=== PATIENT | female | born 1970 | race Caucasian/White ===

== ENCOUNTER 2020-11-01 16:21 | Outpatient (RCR) | payer BC, SELFPAY ==
[2019-02-06 14:26] VITALS: BMI 21.1
[2020-11-01] MEDS: COVID-19 VACC, MRNA(PFIZER)/PF 30 MCG/0.3 ML SYRINGE IM (11:42)
[2020-11-22] MEDS: COVID-19 VACC, MRNA(PFIZER)/PF 30 MCG/0.3 ML SYRINGE IM (11:33)
== END 2020-11-01 23:59 ==
LOC: IMMUN 16:21
PROVIDERS: PCP Family Medicine; Visit Provider Family Medicine
DX: Z23 Encounter for immunization (principal)
CPT/HCPCS: 0001A; 0002A; 91300

== ENCOUNTER 2021-11-11 07:25 | Outpatient (CLI) | payer BC, SELFPAY | END 2021-11-11 23:59 | disposition home or self-care (01) | LOC: LABSPEC 11-12 07:25 | PROVIDERS: PCP Family Medicine; Referring Provider Nurse Practitioner Women's Health; Visit Provider Nurse Practitioner Women's Health | DX: Z12.4 Encounter for screening for malignant neoplasm of cervix (principal); Z78.0 Asymptomatic menopausal state | CPT/HCPCS: 87624; 88175; G0145 ==

== ENCOUNTER 2021-11-20 17:15 | Outpatient (CLI) | payer BC, SELFPAY ==
--- NOTE | 2021-11-20 16:48 | BI_ITS ---
MAMMOGRAPHY - BILATERAL SCREENING REASON FOR EXAM: Female, 51 years old. Routine annual screening examination. PERTINENT HISTORY: Non-contributory. TECHNIQUE: Digital bilateral breast sabine (3D mammographic acquisition) in the CC and MLO projections. 2-D mediolateral oblique (MLO) and craniocaudad (CC) views of both breasts were obtained. CAD: Full Field Digital Mammography with Computer Added Detection was performed. COMPARISON: Comparison is made with prior study dated 05/06/2017 and 11/20/2014. FINDINGS: Breast Composition: There are scattered areas of fibroglandular density. There are no dominant masses or suspicious calcifications. No other significant abnormalities are identified. There has been no significant change since the prior study. BI/SCRN MAMM (CAD)W/SABINE BILAT IMPRESSION: Stable bilateral screening mammogram. Yearly follow-up mammogram recommended. (A) ASSESSMENT CATEGORY: BIRADS Category 1: Negative. A letter regarding these results will be sent to the patient by the facility within 30 days. Approximately 10% of breast cancers are not detected by mammography. A normal mammogram should not delay biopsy of a clinically suspicious abnormality. [id number] Electronically Signed: Bruce Jha MD at 8:42 EDT ,
== END 2021-11-20 23:59 | disposition home or self-care (01) ==
LOC: OPBI 11-21 07:48
PROVIDERS: PCP Family Medicine; Referring Provider Nurse Practitioner Women's Health; Visit Provider Nurse Practitioner Women's Health
DX: Z12.31 Encounter for screening mammogram for malignant neoplasm of breast (principal)
CPT/HCPCS: 77063; 77067

== ENCOUNTER → 2023-04-07 | Outpatient (CLI) | payer BC, SELFPAY ==
[2023-04-07 15:14] LABS: Absolute Neutrophil Count 3.6 X10^3/uL (2.0-7.7); Basophil# 0.07 X10^3/uL; Basophil% 1.1 % (0-1); Eosinophil# 0.13 X10^3/uL; Hematocrit 42.9 % (37-47); Hemoglobin 14.4 g/dL (12.0-15.0); Lymphocyte % 33.5 % (19-41); Mean Corp Hgb Conc 33.6 g/dL (32-36); Mean Corpuscular Hgb 29.5 pg (27.0-32.0); Mean Corpuscular Volume 87.9 fL (81-99); Mean Platelet Vol. 11.3 fl (6.2-12.0); Monocyte# 0.57 X10^3/uL; Monocyte% 8.7 % (0-10); NRBC Flagged by Analyzer 0 % (0-5); Neutrophil # 3.57 X10^3/uL (2.7-7.7); Neutrophil % 54.4 % (47-70); Platelet Count 269 K/mm3 (150-450); RBC Distribution Width CV 13.2 % (11.6-14.6); RBC Distribution Width SD 42.3 fl (35.1-43.9); Red Blood Count 4.88 M/mm3 (4.2-5.4); White Blood Count 6.6 K/mm3 (4.4-11.0)
[2023-04-07 15:46] LABS: ALB/GLOB Ratio 1.1 RATIO (0.9-2.4); AST(SGOT) 24 U/L (15-37); Alanine Aminotransfer ALT/SGPT 32 U/L (13-56); Albumin, Serum 4.3 g/dL (3.2-5.0); Alkaline Phosphatase 75 U/L (45-117); Anion Gap 7 (5-15); BUN 14 mg/dL (7-18); BUN/Creat Ratio 19.6 RATIO (10-20); Calcium,Total 9.7 mg/dL (8.5-10.1); Chloride 105 mmol/L (98-107); Cholesterol 214 mg/dL (200); Creatinine, Serum 0.72 mg/dL (0.55-1.02); EST Glomerular Filtration Rate 91 mL/min (>60); Est Glom Filt Rate - Afr Amer 110 mL/min (>60); Globulin 3.8 g/dL (2.2-4.2); Glucose 90 mg/dL (74-106); High Density Lipoprotein 68 mg/dL; Potassium 4.2 mmol/L (3.5-5.1); Protein, Total 8.1 g/dL (6.4-8.2); Sodium Level 141 mmol/L (136-145); Triglycerides 125 mg/dL; Very Low Density Lipoprotein 25 mg/dL (5-40)
[2023-04-07 15:50] LABS: Vitamin D,25 Hydroxy 40.4 ng/mL
== END | disposition home or self-care (01) ==
LOC: BFHLAB 13:17
PROVIDERS: PCP Nurse Practitioner Family; Referring Provider Nurse Practitioner Family; Visit Provider Nurse Practitioner Family
DX: Z00.01 Encounter for general adult medical examination with abnormal findings (principal); E55.9 Vitamin D deficiency, unspecified
CPT/HCPCS: 36415; 80053; 80061; 82306; 85025

== ENCOUNTER → 2024-11-18 | Outpatient (CLI) | payer BC, SELFPAY ==
--- NOTE | 2024-11-18 07:29 | RAD_ITS ---
PROCEDURE: L/S SPINE MIN 4 VIEWS 11/18/2024 REASON FOR EXAM: ASSESS VERTEBRAL ALIGNMENT AND DISC SPACE TECHNIQUE: Standing AP view(s) of the thoracic and lumbar spine. FINDINGS: Curvature: No scoliosis. Other findings: Vertebral body heights are normal. Disc heights are normal. No significant endplate spondylosis. Mild facet joint arthritis at the lower lumbar spine levels Other: RAD/L/S Spine Min 4 Views IMPRESSION: No acute process. No significant degenerative disc disease. Reading Location: [facility]
[2024-11-18 08:55] LABS: ALB/GLOB Ratio 1.5 RATIO (0.9-2.4); AST(SGOT) 24 U/L (<=31); Alanine Aminotransfer ALT/SGPT 16 U/L (<=34); Albumin, Serum 4.3 g/dL (3.5-5.0); Alkaline Phosphatase 79 U/L (35-104); Anion Gap 12 (5-15); BUN 16 mg/dL (4-19); BUN/Creat Ratio 23.2 RATIO (10-20); Calcium,Total 9.6 mg/dL (7.6-11.0); Carbon Dioxide 22.9 mmol/L (21.0-32.0); Chloride 105 mmol/L (98-108); Cholesterol 160 mg/dL (<=200); Creatinine, Serum 0.69 mg/dL (0.70-1.20); EST Glomerular Filtration Rate 102 (>60); Glucose 101 mg/dL (70-99); High Density Lipoprotein 63 mg/dL; Low Density Lipoprotein Calc. 83 mg/dL; Potassium 4.2 mmol/L (3.3-5.1); Protein, Total 7.3 g/dL (5.9-8.4); Sodium Level 140 mmol/L (133-145); Total Bilirubin 0.37 mg/dL (0.00-1.30); Triglycerides 73 mg/dL; Very Low Density Lipoprotein 15 mg/dL (5-40); cholesterol:hdl ratio screen 2.56
[2024-11-18 08:58] LABS: Vitamin D,25 Hydroxy 56.5 ng/mL (30-100)
[2024-11-18 09:06] LABS: Absolute Lymphocyte Count 1.71 X10^3/uL (0.83-4.51); Absolute Neutrophil Count 2.7 X10^3/uL (2.0-7.7); Basophil# 0.05 X10^3/uL; Eosinophils% 5.7 % (0-5); Hematocrit 40.3 % (37-47); Hemoglobin 14.1 g/dL (12.0-15.0); Lymphocyte # 1.71 X10^3/ul (0.83-4.51); Lymphocyte % 32.6 % (19-41); Mean Corpuscular Hgb 30.1 pg (27.0-32.0); Mean Corpuscular Volume 85.9 fL (81-99); Mean Platelet Vol. 11.1 fl (6.2-12.0); Monocyte# 0.46 X10^3/uL; Monocyte% 8.8 % (0-10); NRBC Flagged by Analyzer 0 % (0-5); Neutrophil % 51.5 % (47-70); Platelet Count 264 K/mm3 (150-450); RBC Distribution Width CV 12.8 % (11.6-14.6); Red Blood Count 4.69 M/mm3 (4.2-5.4); White Blood Count 5.2 K/mm3 (4.4-11.0)
[2024-11-19 10:07] LABS: V-Zoster IgG (Immunity) Reactive (Non Reactive)
== END | disposition home or self-care (01) ==
LOC: LAB 07:26
PROVIDERS: PCP Nurse Practitioner Family; Referring Provider Nurse Practitioner Family; Visit Provider Nurse Practitioner Family
DX: Z00.01 Encounter for general adult medical examination with abnormal findings (principal); M54.31 Sciatica, right side; E55.9 Vitamin D deficiency, unspecified; Z78.9 Other specified health status
CPT/HCPCS: 36415; 72110; 80053; 80061; 82306; 85025; 86787

== ENCOUNTER → 2024-11-23 | Outpatient (CLI) | payer BC, SELFPAY ==
--- NOTE | 2024-11-23 17:00 | BI_ITS ---
EXAM: SCRN MAMM (CAD)W/SABINE BILAT 11/23/2024 CLINICAL HISTORY: F, Age 54 y/o , SCREENING TECHNIQUE: Bilateral screening digital breast tomosynthesis with 2D and 3D images. Computer aided detection. COMPARISON: Prior exam(s) dated 11/20/2021, 05/06/2017. FINDINGS: TISSUE DENSITY: The breast tissue is composed of scattered area of fibroglandular density. Bilateral Breast Mammographic Findings: No significant masses, calcifications or other abnormalities are identified. BI/SCRN MAMM (CAD)W/SABINE BILAT IMPRESSION: Right Breast: BIRADS 1 NEGATIVE. Left Breast: BIRADS 1 NEGATIVE. OVERALL FINAL ASSESSMENT: BIRADS 1 NEGATIVE. RECOMMENDATION: Routine annual follow-up in 1 Year A letter with findings and recommendations will be mailed to the patient. Reading Location: [facility]
== END | disposition home or self-care (01) ==
LOC: OPBI 11-24 07:21
PROVIDERS: PCP Nurse Practitioner Family; Referring Provider Nurse Practitioner Family; Visit Provider Nurse Practitioner Family
DX: Z12.31 Encounter for screening mammogram for malignant neoplasm of breast (principal)
CPT/HCPCS: 77063; 77067

== ENCOUNTER → 2024-12-09 | Outpatient (CLI) | payer BC, SELFPAY ==
--- NOTE | 2024-12-09 08:44 | MRI_ITS ---
PROCEDURE: SPINE LUMBAR (ROUTINE) 12/09/2024 REASON FOR EXAM: SCIATICA, ASSESS FOR DISC ISSUES TECHNIQUE: Multiplanar and multisequence images were obtained without IV contrast administration. COMPARISON: X-ray 11/18/2024 FINDINGS: Vertebrae: No acute fracture Alignment: Anatomic alignment Conus Medullaris: L2. L1-2: Unremarkable L2-3: Unremarkable L3-4: Unremarkable L4-5: Mild bilateral facet hypertrophy and moderate ligamentum flavum hypertrophy. Mild broad disc protrusion produces mild spinal stenosis and mild bilateral neural foraminal stenosis. L5-S1: Unremarkable Sacrum: Unremarkable. MRI/Spine Lumbar (Routine) IMPRESSION: Mild focal degenerative disc disease at L4/L5 as described above. Reading Location: [id number]
== END | disposition home or self-care (01) ==
LOC: MRI 08:38
PROVIDERS: PCP Nurse Practitioner Family; Referring Provider Nurse Practitioner Family; Visit Provider Nurse Practitioner Family
DX: M54.31 Sciatica, right side (principal)
CPT/HCPCS: 72148

== ENCOUNTER 2025-01-10 15:30 | Outpatient (RCR) | payer BC, SELFPAY ==
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
--- NOTE | 2025-01-10 16:14 | HP.PTDCSUM ---
Discharge Summary D/C summary: It has been my pleasure to treat EDWIGE CAMPOS referred by Kenna Goins NP-C, with the diagnosis of Sciatica for a total of 7 visit(s). Discharge Date: 01/10/25 Please see the following information for a summary of their discharge status. Subjective Subjective: Better. Pain when she has it is less frequent Trasnitions at times without pain adn less intense. 2/10 with some transitions transiently. Sitting alot is still worse. No f/u with doctor. HEP: stretches and strength 2x/day. Not back at [employer] yet due to time. Pain R hip: Pain Intensity (Out of 10): 0 Overall Improvement % Improvement: 80 Objective Objective/Function: Good and full ROM R hip , still mod tender uppeer gluts R near iliac crst but transient. Walking well, strong contractions without only pain with hip abduction trasniently. Feel like she can take it from here vs more etherapy. Goals Goal 1:: Pt get off floor and out of chair without pain Goal Progress: Goal Met Goal 2:: Pt feel pain 1/10 at worst and 90% better Goal Progress: 80% Goal 3:: return to normal gym workout without pain Goal Progress: no time Goal 4:: LEFS score 65 Goal Progress: Goal Met Plan Plan: d/c to HEP D/C Information d/c sentence: If there are questions or concerns regarding this patient's physical therapy, please feel free to call me at [phone]. Thank you for the referral of this patient. Sincerely, Isaiah Mason, DPT, OCS, CSCS Balance/Gait/Functional tests Balance/Special Test Scores Lower Extremity Functional Score: 72 Improvement % Improvement: 80
== END 2025-01-10 19:00 | disposition home or self-care (01) ==
LOC: PT 15:30
PROVIDERS: PCP Nurse Practitioner Family; Referring Provider Nurse Practitioner Family; Visit Provider Nurse Practitioner Family
DX: M54.31 Sciatica, right side (principal)
CPT/HCPCS: 97035; 97110; 97140; 97161; 97530